=== PATIENT | female | born 1965 | race American Indian/Alaskan Native ===

== ENCOUNTER 2017-08-22 09:01 | Outpatient (CLI) | payer OTHER ==
--- NOTE | 2017-08-22 15:07 | Mammography Report ---
BILATERAL DIGITAL SCREENING MAMMOGRAM with CAD: 08/22/17 09:01:00 CLINICAL: Routine screening. COMPARISON:08/20/16 FINDINGS: The breasts are heterogeneously dense, which may obscure small masses. No mass, architectural distortion or suspicious calcifications. IMPRESSION: No mammographic evidence of malignancy. BI-RADS CATEGORY: 1 - - Negative RECOMMENDATION: Routine mammographic screening in one year. COMMENT: Patient follow-up letters are generated by our [employer] application.
== END 2017-08-22 09:02 | disposition home or self-care (01) ==
LOC: SPVWC 09:01
PROVIDERS: ATTEND Obstetrics & Gynecology
DX: Z12.31 Encounter for screening mammogram for malignant neoplasm of breast (principal)
CPT/HCPCS: 77067; G0202

== ENCOUNTER 2019-09-03 08:11 | Outpatient (CLI) | payer OTHER ==
--- NOTE | 2019-09-03 10:31 | Mammography Report ---
DIGITAL SCREENING MAMMOGRAM WITH CAD, 09/03/2019 INDICATION: Routine screening mammography. TECHNIQUE: Digital bilateral 2D mammography was obtained in the craniocaudal and mediolateral obliq ue projections. This examination was interpreted with the benefit of Computer-Aided Detection analysi s. COMPARISON: 08/28/2018 FINDINGS: Breast Density: The breasts are heterogeneously dense, which may obscure small masses. There is no evidence of dominant mass, suspicious calcifications or architectural distortion in eithe r breast. IMPRESSION: No mammographic evidence of malignancy. Follow up recommendation: Routine yearly BI-RADS Category 1: Negative. A "normal" or negative report should not discourage follow up or biopsy of a clinically significant f inding. A written summary of these findings will be mailed to the patient. The patient will be entered into a mammography reporting system which will generate a reminder letter for the patient's next appointmen t at the appropriate interval. The [employer] recommends yearly mammograms starting at age 40 and continuing as l janiya as a woman is in good health. Breast MRI is recommended for women with an approximate 20-25% or greater lifetime risk of breast cancer, including women with a strong family history of breast or ova issa cancer or who have been treated for Hodgkin's disease. Signer Name: Keith Anderson MD Signed: 09/03/2019 10:26 AM Workstation Name: [id number]
== END 2019-09-03 08:12 | disposition home or self-care (01) ==
LOC: SPVWC 08:11
PROVIDERS: ATTEND Obstetrics & Gynecology
DX: Z12.31 Encounter for screening mammogram for malignant neoplasm of breast (principal)
CPT/HCPCS: 77067

== ENCOUNTER 2020-09-19 08:41 | Outpatient (CLI) | payer OTHER ==
--- NOTE | 2020-09-19 11:24 | Mammography Report ---
DIGITAL SCREENING MAMMOGRAM WITH CAD, 09/19/2020 INDICATION: Routine screening mammography. TECHNIQUE: Digital bilateral 2D mammography was obtained in the craniocaudal and mediolateral obliq ue projections. This examination was interpreted with the benefit of Computer-Aided Detection analysi s. COMPARISON: 09/03/2019. FINDINGS: Breast Density: There are scattered areas of fibroglandular density. There is no evidence of dominant mass, suspicious calcifications or architectural distortion in eithe r breast. IMPRESSION: Follow up recommendation: Routine yearly BI-RADS Category 1: Negative. A "normal" or negative report should not discourage follow up or biopsy of a clinically significant f inding. A written summary of these findings will be mailed to the patient. The patient will be entered into a mammography reporting system which will generate a reminder letter for the patient's next appointmen t at the appropriate interval. The [employer] recommends yearly mammograms starting at age 40 and continuing as l janiya as a woman is in good health. Breast MRI is recommended for women with an approximate 20-25% or greater lifetime risk of breast cancer, including women with a strong family history of breast or ova issa cancer or who have been treated for Hodgkin's disease. Signer Name: Willi Franz MD Signed: 09/19/2020 11:20 AM Workstation Name: [id number]
== END 2020-09-19 08:42 | disposition home or self-care (01) ==
LOC: SPVWC 08:41
PROVIDERS: ATTEND Obstetrics & Gynecology
DX: Z12.31 Encounter for screening mammogram for malignant neoplasm of breast (principal)
CPT/HCPCS: 77067

== ENCOUNTER 2021-09-21 08:47 | Outpatient (CLI) | payer OTHER ==
--- NOTE | 2021-09-22 13:56 | Mammography Report ---
DIGITAL SCREENING MAMMOGRAM WITH CAD, 09/21/2021 CLINICAL INFORMATION / INDICATION: Routine screening TECHNIQUE: Digital bilateral 2D mammography was obtained in the craniocaudal and mediolateral obliqu e projections. This examination was interpreted with the benefit of Computer-Aided Detection analysis . COMPARISON: 09/19/2020 FINDINGS: Breast Density: There are scattered areas of fibroglandular density. No dominant mass, suspicious calcifications, or architectural distortion in either breast. IMPRESSION: No mammographic evidence of malignancy. Follow up recommendation: Routine yearly BI-RADS Category 1: NEGATIVE A "normal" or negative report should not discourage follow up or biopsy of a clinically significant f inding. A written summary of these findings will be mailed to the patient. The patient will be entered into a mammography reporting system which will generate a reminder letter for the patient's next appointmen t at the appropriate interval. The [employer] recommends yearly mammograms starting at age 40 and continuing as l janiya as a woman is in good health. Breast MRI is recommended for women with an approximate 20-25% or greater lifetime risk of breast cancer, including women with a strong family history of breast or ova issa cancer or who have been treated for Hodgkin's disease. Signer Name: Mamadou Paulino MD Signed: 09/22/2021 1:52 PM Workstation Name: [id number]
== END 2021-09-21 08:48 | disposition home or self-care (01) ==
LOC: SPVWC 08:47
PROVIDERS: ATTEND Obstetrics & Gynecology
DX: Z12.31 Encounter for screening mammogram for malignant neoplasm of breast (principal); N64.89 Other specified disorders of breast
CPT/HCPCS: 77067